=== PATIENT | female | born 1985 | race Caucasian/White ===

== ENCOUNTER 2016-08-13 09:34 | Emergency (ER) | payer MEDICAID ==
[~2016-08-13] VITALS: Ht 157.5 cm; Wt 82.0 kg
[~2016-08-13 09:34] MED LIST: LABE200T28 PO; PREN1TAB49 PO
[2016-08-13] MEDS ORDERED: ALBUTEROL (0.083%) 2.5MG/3ML NEB HHN STA (11:00)
[2016-08-13] MEDS ORDERED: PREDNISONE 20MG TABLET PO STA (11:00)
[2016-08-13] MEDS ORDERED: IPRATROPIUM BROMIDE (0.02%) 0.5MG/2.5ML NEB HHN STA (11:00)
[2016-08-13] MEDS ORDERED: IBUPROFEN 600MG TABLET PO ONE (11:15)
[2016-08-13] MEDS ORDERED: ALBUTEROL (0.083%) 2.5MG/3ML NEB ONE (11:27)
[2016-08-13] MEDS ORDERED: IPRATROPIUM BROMIDE (0.02%) 0.5MG/2.5ML NEB ONE (11:28)
[2016-08-13] MEDS ORDERED: SODIUM CHLORIDE 0.9% 1,000 ML IV ONE (12:08)
[2016-08-13] MEDS ORDERED: ACETAMINOPHEN 325MG TABLET PO ONE (12:15)
[2016-08-13 12:41] LABS: BASOPHILS % 0.2 % (0.0-2.0); EOSINOPHILS % 0.1 % (0.0-5.0); HEMATOCRIT. 37.6 % (36.0-48.0); LYMPHOCYTES % 10.2 % (20.0-50.0); MEAN CORPUSCULAR HEMOGLOBIN 30.4 pg (28.0-32.0); MEAN CORPUSCULAR HGB CONC 34.6 g/dL (31.0-37.0); MEAN CORPUSCULAR VOLUME 87.8 fL (81.0-99.0); MEAN PLATELET VOLUME 6.7 fl (7.4-10.4); MONOCYTES % 4.5 % (2.0-8.0); PLATELET 246 x1000/uL (130-400); RED BLOOD CELL COUNT 4.28 mill/uL (4.2-5.4); RED CELL DISTRIBUTION WIDTH 13.6 % (11.6-14.6)
[2016-08-13 12:49] LABS: INR 1.1; PROTHROMBIN TIME 11.4 sec
[2016-08-13 12:51] LABS: ALBUMIN 3.6 g/dL (3.4-5.0); ANION GAP 16; CARBON DIOXIDE 22 mEq/L (21-32); CHLORIDE 103 mEq/L (98-107); INDEX HEMOLYSI 1 (1-3); INDEX ICTERIC 1 (1-4); INDEX LIPEMIC 1 (1-3); UREA NITROGEN BLOOD 12 mg/dL (7-21)
[2016-08-13 12:56] LABS: ALANINE AMINOTRANSFERASE 31 IU/L (13-61); eGFR > 60 mL/min (>60)
[2016-08-13 12:57] LABS: CLARITY URINE CLOUDY (CLEAR); COLOR URINE YELLOW (YELLOW); GLUCOSE URINE NEGATIVE (NEGATIVE); KETONES URINE NEGATIVE (NEGATIVE); LEUKOCYTE ESTERASE URINE TRACE (NEGATIVE); NITRITE URINE NEGATIVE (NEGATIVE); OCCULT BLOOD URINE NEGATIVE (NEGATIVE); PROTEIN URINE NEGATIVE (NEGATIVE)
[2016-08-13 13:45] LABS: SQUAMOUS EPITHELIAL CELL URINE 3+ /lpf (RARE/1+)
[2016-08-13 13:46] LABS: BACTERIA URINE 1+
[2016-08-13 13:47] LABS: RBC URINE 0-2 /hpf (0-2); WBC URINE 0-2 /hpf (0-2); YEAST URINE RARE
[2016-08-13 14:00] VITALS: BP 128/84
== END 2016-08-13 15:00 | disposition home or self-care (01) ==
LOC: ER 10:33
DX: R05 Cough (principal); R06.2 Wheezing; Z98.890 Other specified postprocedural states
CPT/HCPCS: 36415; 71010; 80053; 81001; 81025; 83605; 85025; 85610; 94640; 96360; 96361; 99285; J7030; J7512; J7611; Z7610